=== PATIENT | female | born 1965 | race Caucasian/White ===

== ENCOUNTER → 2017-07-13 | Outpatient (CLI) | payer BC | END | disposition home or self-care (01) | LOC: KCIC MRI 10:49 | DX: M48.02 Spinal stenosis, cervical region (principal); M54.12 Radiculopathy, cervical region; M79.601 Pain in right arm; M50.323 Other cervical disc degeneration at C6-C7 level; M25.78 Osteophyte, vertebrae | CPT/HCPCS: 72141 ==